=== PATIENT | male | born 1955 | race African-American/Black ===

== ENCOUNTER 2021-09-30 04:46 | Emergency (ER) | payer MEDICARE ==
[~2021-09-30] VITALS: Ht 190.5 cm; Wt 86.6 kg
[2021-09-30] MEDS ORDERED: AMLODIPINE 5MG TABLET PO ONE (05:30)
[2021-09-30] MEDS ORDERED: LORAZEPAM 0.5MG TABLET PO ONE (05:30)
[2021-09-30 05:38] LABS: BASOPHILS % 0.2 % (0.0-2.0); EOSINOPHILS % 0.3 % (0.0-5.0); HEMATOCRIT. 41.6 % (42.0-52.0); LYMPHOCYTES % 7.2 % (20.0-50.0); MEAN CORPUSCULAR HEMOGLOBIN 27.7 pg (28.0-32.0); MEAN CORPUSCULAR VOLUME 82.3 fL (80.0-94.0); MEAN PLATELET VOLUME 7.1 fl (7.4-10.4); MONOCYTES % 4.4 % (2.0-8.0); NEUTROPHILS % 87.9 % (40.0-76.0); PLATELET 282 x1000/uL (130-400); RED BLOOD CELL COUNT 5.05 mill/uL (4.7-6.1)
[2021-09-30 05:42] LABS: CHLORIDE 108 mEq/L (98-107)
[2021-09-30 06:09] LABS: CLARITY URINE CLEAR (CLEAR); COLOR URINE YELLOW (YELLOW); KETONES URINE NEGATIVE (NEGATIVE); LEUKOCYTE ESTERASE URINE NEGATIVE (NEGATIVE); NITRITE URINE NEGATIVE (NEGATIVE); OCCULT BLOOD URINE 1+ (NEGATIVE); PROTEIN URINE 1+ (NEGATIVE); SPECIFIC GRAVITY URINE 1.008 (1.005-1.030); UROBILINOGEN URINE 0.2 E.U./dL (0.2-1.0)
[2021-09-30 07:40] VITALS: BP 180/86
[2021-09-30] MEDS ORDERED: TAMS-11 MT (07:47)
[2021-09-30] MEDS ORDERED: AMLO5TAB4 MT (07:47)
== END 2021-09-30 08:45 | disposition home or self-care (01) ==
LOC: ER 05:04
DX: R33.9 Retention of urine, unspecified (principal); I10 Essential (primary) hypertension; Z88.0 Allergy status to penicillin; Z98.890 Other specified postprocedural states
CPT/HCPCS: 36415; 51702; 80053; 81003; 85025; 93005; 99284; A4315